=== PATIENT | male | born 1960 | race Caucasian/White ===

== ENCOUNTER 2017-06-13 23:56 | Emergency (ER) | payer SELFPAY ==
--- NOTE | 2017-06-14 00:04 | NUR ---
PT AOX4, AMBULATORY W/ STEADY GAIT, BIBA FOR ETOH INTOXICATION, BYSTANDER CALLED 911. PT DENIES ANY MEDICAL COMPLAINTS, REFUSING ANY MEDICAL TX, REFUSING TO BE TRIAGED, REFUSING TO BE SEEN. MD PAULINO. SHANNAN CALLED FOR PT.
== END 2017-06-14 00:08 | disposition left against medical advice (07) ==
LOC: ER 23:57
DX: Z53.21 Procedure and treatment not carried out due to patient leaving prior to being seen by health care provider (principal)